=== PATIENT | female | born 1990 | race Caucasian/White ===

== ENCOUNTER 2021-03-20 19:33 | Emergency (ER) | payer SELFPAY ==
[2021-03-21] MEDS ORDERED: CEPHALEXIN500 MG PO (01:25)
[2021-03-21] MEDS ORDERED: BACTRIM DS TAB1 EACH PO (01:25)
== END 2021-03-21 01:50 | disposition home or self-care (01) ==
LOC: ER1 19:33
DX: N76.4 Abscess of vulva (principal)
CPT/HCPCS: 56420; 99282